=== PATIENT | male | born 1995 ===

== ENCOUNTER 2019-10-01 01:23 | Observation (INO) | payer OTHER ==
[2019-10-01] MEDS ORDERED: DIPH,PERTUS(ACELL)TETVAC-LF 0.5 ML VIAL IM ONE (01:57)
--- NOTE | 2019-10-01 02:10 | ED ---
Upper Extremity HPI - General Chief Complaint: Extremity Injury, Upper Stated Complaint: Arm Injury Time Seen by Provider: 10/01/19 01:30 Source: patient Mode of arrival: ambulatory Limitations: no limitations - History of Present Illness Initial Comments: Leslie previously healthy 23-year-old male presents the ER today for evaluation of a possible foreign body in his left arm. Patient reports he was attempting to break a wooden stick over his knee when it snapped and is not certain exactly what happened but a splinter of wood stabbed him in the left forearm. Patient is uncertain of the size the wood but notes that there seems to be a piece of th e splinter sticking out of his distal biceps area. Patient reports pain with movement but states that when he is not moving the pain isn't too bad. He states that he is fully vaccinated as a child but doesn't know when his last tetanus vaccine was. - Related Data Allergies Allergy/AdvReac Type Severity Reaction Status Date / Time No Known Allergies Allergy Verified 10/01/19 01:32 Review of Systems ROS Statement: Those systems with pertinent positive or pertinent negative responses have been documented in the HPI. ROS Other: All systems not noted in ROS Statement are negative. Past Medical History Past Medical History: No Reported History History of Any Multi-Drug Resistant Organisms: None Reported Past Surgical History: No Surgical Hx Reported Past Psychological History: No Psychological Hx Reported Smoking Status: Never smoker Past Alcohol Use History: Rare Past Drug Use History: None Reported General Exam - General Exam Comments Initial Comments: Physical Exam GENERAL: Patient is well-developed and well-nourished. Patient is nontoxic and well-hydrated and is in no distress. HENT: Normocephalic, Atraumatic. EYES: PERRL, EOMI PULMONARY: Unlabored respirations. CARDIOVASCULAR: RRR Warm and well perfused extremities Strong Radial and Ulnar pulses in left wrist Cap refil in left hand is <2 seconds ABDOMEN: Non-distended SKIN: Laceration to left lateral proximal forearm, obvious foreign body noted Foreign body noted near medial distal bicep - appears to be contiguous with foreign body from distal forearm : Deferred NEUROLOGIC: Alert and oriented Normal speech Normal gait MUSCULOSKELETAL: Moving all extremities with no apparent injury PSYCHIATRIC: No SI/HI Limitations: no limitations Course Vital Signs 10/01/19 10/01/19 10/01/19 01:32 02:25 02:49 Temperature 98.6 F 98.4 F Pulse Rate 80 Pulse Rate [ 66 Left Radial] Pulse Rate [ 69 Right] Respiratory 16 18 Rate Blood Pressure 136/84 141/77 Blood Pressure 149/80 [Right Arm] O2 Sat by Pulse 99 97 Oximetry 10/01/19 03:20 Temperature 98.3 F Pulse Rate 76 Pulse Rate [ Left Radial] Pulse Rate [ Right] Respiratory 16 Rate Blood Pressure 150/89 Blood Pressure [Right Arm] O2 Sat by Pulse 98 Oximetry Medical Decision Making - Medical Decision Making The patient was seen and evaluated history is obtained from the patient there appears to be a wooden foreign body measuring approximately 12 cm the entered distal to the elbow and can be palpated proximal to the elbow at the distal bicep The arm is neurovascularly intact, there is strong radial and ulnar pulses R efill is less than 2 seconds Patient has normal strength and sensation in the hand, full range of motion of the wrist, range of motion of the elbow is limited by concern that the foreign body is going to move There is no active bleeding from the wound patient is not experiencing any paresthesias Labs and x-rays were obtained Patient care was discussed with the orthopedic surgeon on-call Dr. Elizabeth who agrees patient warrants a poor washout for this foreign body requested a CTA of the upper extremity be obtained to evaluate for any possible vascular injury or need for vascular surgery consult - Lab Data Result diagrams: 10/01/19 02:19 10/01/19 02:19 Lab Results 10/01/19 10/01/19 10/01/19 Range/Units 02:19 02:19 02:20 WBC 6.6 (3.8-10.6) k/uL RBC 5.14 (4.30-5.90) m/uL Hgb 15.0 (13.0-17.5) gm/dL Hct 45.1 (39.0-53.0) % MCV 87.7 (80.0-100.0) fL MCH 29.1 (25.0-35.0) pg MCHC 33.2 (31.0-37.0) g/dL RDW 12.2 (11.5-15.5) % Plt Count 306 (150-450) k/uL Neutrophils % 50 % Lymphocytes % 38 % Monocytes % 5 % Eosinophils % 3 % Basophils % 1 % Neutrophils # 3.3 (1.3-7.7) k/uL Lymphocytes # 2.5 (1.0-4.8) k/uL Monocytes # 0.4 (0-1.0) k/uL Eosinophils # 0.2 (0-0.7) k/uL Basophils # 0.1 (0-0.2) k/uL Sodium 140 (137-145) mmol/L Potassium 3.7 (3.5-5.1) mmol/L Chloride 104 (98-107) mmol/L Carbon Dioxide 22 (22-30) mmol/L Anion Gap 14 mmol/L BUN 13 (9-20) mg/dL Creatinine 0.94 (0.66-1.25) mg/dL Est GFR (CKD-EPI)AfAm >90 (>60 ml/min/1.73 sqM) Est GFR (CKD-EPI)NonAf >90 (>60 ml/min/1.73 sqM) Glucose 114 H (74-99) mg/dL Calcium 9.6 (8.4-10.2) mg/dL Total Bilirubin 0.6 (0.2-1.3) mg/dL AST 21 (17-59) U/L ALT 32 (4-49) U/L Alkaline Phosphatase 107 (38-126) U/L Total Protein 8.0 (6.3-8.2) g/dL Albumin 5.2 H (3.5-5.0) g/dL Blood Type O Positive Blood Type Confirm Blood Type Recheck No Previous Record Bld Type Recheck Status CABO Indicated Antibody Screen NEGATIVE Spec Expiration Date 10/04/2019 - 231910/01/19 Range/Units 02:21 WBC (3.8-10.6) k/uL RBC (4.30-5.90) m/uL Hgb (13.0-17.5) gm/dL Hct (39.0-53.0) % MCV (80.0-100.0) fL MCH (25.0-35.0) pg MCHC (31.0-37.0) g/dL RDW (11.5-15.5) % Plt Count (150-450) k/uL Neutrophils % % Lymphocytes % % Monocytes % % Eosinophils % % Basophils % % Neutrophils # (1.3-7.7) k/uL Lymphocytes # (1.0-4.8) k/uL Monocytes # (0-1.0) k/uL Eosinophils # (0-0.7) k/uL Basophils # (0-0.2) k/uL Sodium (137-145) mmol/L Potassium (3.5-5.1) mmol/L Chloride (98-107) mmol/L Carbon Dioxide (22-30) mmol/L Anion Gap mmol/L BUN (9-20) mg/dL Creatinine (0.66-1.25) mg/dL Est GFR (CKD-EPI)AfAm (>60 ml/min/1.73 sqM) Est GFR (CKD-EPI)NonAf (>60 ml/min/1.73 sqM) Glucose (74-99) mg/dL Calcium (8.4-10.2) mg/dL Total Bilirubin (0.2-1.3) mg/dL AST (17-59) U/L ALT (4-49) U/L Alkaline Phosphatase (38-126) U/L Total Protein (6.3-8.2) g/dL Albumin (3.5-5.0) g/dL Blood Type Blood Type Confirm O Positive Blood Type Recheck Bld Type Recheck Status Antibody Screen Spec Expiration Date Disposition Clinical Impression: Foreign body of left upper arm Disposition: ADMITTED IP TO THIS HOSP Condition: Stable Is patient prescribed a controlled substance at d/c from ED?: No
[2019-10-01] MEDS ORDERED: ONDANSETRON 4 MG/2 ML VIAL IVP PRN (02:28)
[2019-10-01] MEDS ORDERED: MORPHINE SULFATE 4 MG/ML SYRINGE IV PRN (02:28)
[2019-10-01] MEDS ORDERED: NALOXONE 0.4 MG/ML 1 ML VIAL IV PRN (02:28)
--- NOTE | 2019-10-01 02:29 | XR ---
EXAMINATION TYPE: XR elbow limited LT DATE OF EXAM: 10/01/2019 COMPARISON: NONE HISTORY: Foreign body. Trauma. TECHNIQUE: 3 views FINDINGS: There is soft tissue linear lucent defect along the anterior aspect of the elbow joint cons istent with foreign body or large laceration. There is no metallic type foreign body. There is no rupert dence of joint effusion. Joint spaces are normal. There is no evidence of a fracture. IMPRESSION: Lucent linear line consistent with foreign body or laceration. No fracture.
[2019-10-01 02:31] LABS: Basophils # (A) 0.1 k/uL (0-0.2); Basophils % (A) 1 %; Eosinophils # (A) 0.2 k/uL (0-0.7); Eosinophils % (A) 3 %; HCT 45.1 % (39.0-53.0); Lymphocytes # (A) 2.5 k/uL (1.0-4.8); Lymphocytes % (A) 38 %; MCH 29.1 pg (25.0-35.0); MCHC 33.2 g/dL (31.0-37.0); MCV 87.7 fL (80.0-100.0); Monocytes # (A) 0.4 k/uL (0-1.0); Monocytes % (A) 5 %; Neutrophils # (A) 3.3 k/uL (1.3-7.7); Neutrophils % (A) 50 %; Platelet Count 306 k/uL (150-450); RBC 5.14 m/uL (4.30-5.90); RDW 12.2 % (11.5-15.5); WBC 6.6 k/uL (3.8-10.6)
[2019-10-01] MEDS: SODIUM CHLORIDE 0.9% 1,000 ML IV SCH ×2 (02:37→11:36)
[2019-10-01 02:51] LABS: ALT 32 U/L (4-49); AST 21 U/L (17-59); African American GFR (CKD) >90 (>60 ml/min/1.73 sqM); Albumin 5.2 g/dL (3.5-5.0); Alkaline Phosphatase 107 U/L (38-126); Anion Gap 14 mmol/L; Blood Urea Nitrogen 13 mg/dL (9-20); Calcium 9.6 mg/dL (8.4-10.2); Carbon Dioxide 22 mmol/L (22-30); Chloride 104 mmol/L (98-107); Glucose 114 mg/dL (74-99); Non-African American GFR(CKD) >90 (>60 ml/min/1.73 sqM); Potassium 3.7 mmol/L (3.5-5.1); Sodium 140 mmol/L (137-145); Total Bilirubin 0.6 mg/dL (0.2-1.3)
--- NOTE | 2019-10-01 03:45 | CT ---
EXAMINATION TYPE: CT angio upper extremity LT DATE OF EXAM: 10/01/2019 COMPARISON: HISTORY: foreign body CT DLP: 981.9 mGycm Automated exposure control for dose reduction was used. CONTRAST: Performed with IV Contrast, patient injected with 175 mL of Isovue 370. Images were obtained from the top of the shoulder to the tip of the fingers with IV contrast and 3-D post processed images. There is arterial flow in the left subclavian artery which is widely patent. There is arterial flow i n the brachial and axillary artery. There is arterial flow in the radial and ulnar arteries. I see no evidence of hemodynamic stenosis. There is no mass effect. There is no evidence of luminal narrowing . There is arterial flow in the ulnar artery at the palmar arch. There is a linear low-density defect through the brachioradialis muscle at the anterior elbow joint l evel. The defect is low attenuation but more than air and would be consistent with a low density piec e of wood in the soft tissues. Defect is not close to the brachial and radial and ulnar arteries. The bony structures are intact. There is no evidence of a fracture. IMPRESSION: No angiographic abnormality. Linear low attenuation 5 mm wide defect through the brachial radialis muscle consistent with a piece of wood foreign body in the soft tissues. No fracture.
[2019-10-01 06:51] LABS: African American GFR (CKD) >90 (>60 ml/min/1.73 sqM); Anion Gap 3 mmol/L; Blood Urea Nitrogen 8 mg/dL (9-20); Carbon Dioxide 18 mmol/L (22-30); Chloride 121 mmol/L (98-107); Glucose 63 mg/dL (74-99); Non-African American GFR(CKD) >90 (>60 ml/min/1.73 sqM); Sodium 142 mmol/L (137-145)
[2019-10-01 06:58] LABS: Calcium 5.4 mg/dL (8.4-10.2); Potassium 2.7 mmol/L (3.5-5.1)
[2019-10-01] MEDS ORDERED: Potassium Replacement Protocol 1 EACH MISC MISCELLANE PRN (06:59)
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
[2019-10-01 08:04] LABS: African American GFR (CKD) >90 (>60 ml/min/1.73 sqM); Anion Gap 11 mmol/L; Blood Urea Nitrogen 12 mg/dL (9-20); Calcium 9.5 mg/dL (8.4-10.2); Carbon Dioxide 24 mmol/L (22-30); Chloride 107 mmol/L (98-107); Glucose 93 mg/dL (74-99); Non-African American GFR(CKD) >90 (>60 ml/min/1.73 sqM); Potassium 4.4 mmol/L (3.5-5.1); Sodium 142 mmol/L (137-145)
[2019-10-01] MEDS ORDERED: SODIUM CHLORIDE 0.9% 1,000 ML IV ONE (08:20)
[2019-10-01] MEDS ORDERED: ONDANSETRON 4 MG/2 ML VIAL ONE (08:20)
[2019-10-01] MEDS ORDERED: PROPOFOL 10 MG/ML 20 ML VIAL IV ONE (08:20)
[2019-10-01] MEDS ORDERED: LIDOCAINE 1% INJ 10MG/ML (20 ML MDV) ONE (08:20)
[2019-10-01] MEDS ORDERED: SUCCINYLCHOLINE CHLORIDE 100 MG/5 ML SYR IV ONE (08:20)
[2019-10-01] MEDS ORDERED: ceFAZolin 1,000 MG VIAL ONE (08:20)
[2019-10-01] MEDS ORDERED: DEXAMETHASONE SOD PHOS (MDV) 100 MG/10 ML VIAL ONE (08:20)
[2019-10-01] MEDS ORDERED: MIDAZOLAM 2 MG/2 ML VIAL ONE (08:20)
[2019-10-01] MEDS ORDERED: fentaNYL (PF) 50 MCG/ML 2 ML AMP ONE (08:20)
[2019-10-01] MEDS: POTASSIUM CHLORIDE ER 20 MEQ TAB.ER PO SCH ×2 (08:24→09:06)
[2019-10-01] MEDS ORDERED: SODIUM CHLORIDE 0.9% 100 ML with ceFAZolin 2,000 MG IV ONE ×2 (08:32)
[2019-10-01 09:23] VITALS: TEMP 98.2
[2019-10-01] MEDS ORDERED: Acetaminophen-Codeine 300-30mg TAB PO PRN (09:25)
[2019-10-01] MEDS ORDERED: LACTATED RINGERS 1,000 ML IV SCH (09:30)
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
[2019-10-01 11:33] VITALS: RESP 16
[2019-10-01 11:37] VITALS: BP 148/82; PULSE 64
== END 2019-10-01 14:57 | disposition home or self-care (01) ==
LOC: EC 01:23 → 1SOBS 02:28
PROVIDERS: ADMIT Orthopaedic Surgery Orthopaedic Surgery of the Spine; ATTEND Orthopaedic Surgery Orthopaedic Surgery of the Spine
DX: S51.042A Puncture wound with foreign body of left elbow, initial encounter (principal); Z03.818 Encounter for observation for suspected exposure to other biological agents ruled out; F10.129 Alcohol abuse with intoxication, unspecified
CPT/HCPCS: 20103; 90471; 99285; 36415; 86900; 86901; 80053; 85025; 86850; 73070; 73206; 90715; G0378; U0003; J2250; J0690 ×2; J2405; J2001; J3010; J1100; J0330; J2704; Q9967; 80048